=== PATIENT | male | born 1980 | race Caucasian/White ===

== ENCOUNTER 2018-10-14 09:13 | Emergency (ER) | payer MEDICAID ==
[~2018-10-14] VITALS: Ht 167.6 cm; Wt 75.0 kg
[~2018-10-14 09:13] MED LIST: ACET-1157; CEPH-443; SILV20CR12 TOP
[2018-10-14] MEDS ORDERED: SOD CHLORIDE 0.9% 1,000 ML IV STA (09:16)
[2018-10-14] MEDS ORDERED: NALOXONE (0.4 MG/ML) INJ ONE (09:57)
[2018-10-14] MEDS ORDERED: NALOXONE (0.4 MG/ML) INJ IV ONE ×2 (10:00→11:10)
[2018-10-14] MEDS ORDERED: KETOROLAC 15 MG INJ IV STA (14:01)
--- NOTE | 2018-10-14 15:20 | PSY ---
Date/Time of Note Date/Time of Note DATE: 10/14/18 TIME: 18:11 Psychiatric Subjective Eval Consent Pt consented to telemedicine: Yes Subjective Evaluation Patient location: emergency History of present illness HPI: 38 yo male with unclear psych hx, was brought in after found unresponsive at work. In ED, pt was initially nearly catatonic, not responding but had no medical problems. Pt woke up today and has been responding, told the attending MD that he has thoughts to kill himself and was using methamphetamine. Pt tells this MD that he is depressed, denies any si or that he ever reported si. he admits to using methamphetamine and feeling depressed. Reports he feels in a dream. Denies AH. Past Psych Hx: denies PMhx: denieis meds: denies Allergies: denies MSE: cooperative, casually groomed, somewhat lethargic, + PMR, decreased prosody of speech (used azerbaijani director speech language), dysthymic, restricted affect, organized, no delusions no avh denies si, impaired insight Imp: 38 yo male s/p what appears to be psychosis related to likely methamphetamine use. Most sxs have apparently resolved, as well as pt's si, now that pt is less intoxicated voluntary psych admit recommend zyprexa 2.5mg po bid zyprexa 5mg po prn moderate agitation chlorpromazine 25mg im prn Allergies: Coded Allergies: No Known Allergy (Unverified , 03/19/11) Psychiatric Objective Eval Mental Status Examination: Laboratory Results Laboratory Tests Test 10/14/18 09:18 10/14/18 09:20 10/14/18 09:24 10/14/18 09:45 Bedside Glucose 160 mg/dL Prothrombin Time 12.7 Sec Prothrombin Time 1.0 Ratio INR International 0.94 Normalized Ratio White Blood Count 12.4 10^3/ul Red Blood Count 4.99 10^6/ul Hemoglobin 14.0 g/dl Hematocrit 42.6 % Mean Corpuscular 85.4 fl Volume Mean Corpuscular 28.1 pg Hemoglobin Mean Corpuscular 32.9 g/dl Hemoglobin Concent Red Cell 13.5 % Distribution Width Platelet Count 188 10^3/UL Mean Platelet 12.7 fl Volume Immature 0.400 % Granulocytes % Neutrophils % 74.5 % Lymphocytes % 17.5 % Monocytes % 5.4 % Eosinophils % 1.8 % Basophils % 0.4 % Nucleated Red 0.0 /100WBC Blood Cells % Immature 0.050 10^3/ul Granulocytes # Neutrophils # 9.2 10^3/ul Lymphocytes # 2.2 10^3/ul Monocytes # 0.7 10^3/ul Eosinophils # 0.2 10^3/ul Basophils # 0.1 10^3/ul Nucleated Red 0.0 10^3/ul Blood Cells # Urine Color STRAW Urine Clarity CLEAR Urine pH 7.0 Urine Specific 1.006 [place] Urine Ketones NEGATIVE mg/dL Urine Nitrite NEGATIVE mg/dL Urine Bilirubin NEGATIVE mg/dL Urine Urobilinogen NEGATIVE mg/dL Urine Leukocyte NEGATIVE Jose/ul Esterase Urine Hemoglobin NEGATIVE mg/dL Urine Glucose 2+ mg/dL Urine Total NEGATIVE mg/dl Protein Sodium Level 136 mmol/L Potassium Level 3.6 mmol/L Chloride Level 99 mmol/L Carbon Dioxide 28 mmol/L Level Anion Gap 9 Blood Urea 21 mg/dl Nitrogen Creatinine 0.65 mg/dl Est Glomerular > 60 mL/min Filtrat Rate mL/min Glucose Level 179 mg/dl Calcium Level 8.8 mg/dl Total Bilirubin 0.3 mg/dl Direct Bilirubin 0.00 mg/dl Indirect Bilirubin 0.3 mg/dl Aspartate Amino 26 IU/L Transf (AST/SGOT) Alanine 37 IU/L Aminotransferase ( ALT/SGPT) Alkaline 102 IU/L Phosphatase Ammonia < 9 umol/l Troponin I < 0.012 ng/ml Total Protein 6.4 g/dl Albumin 3.5 g/dl Globulin 2.90 g/dl Albumin/Globulin 1.20 Ratio Salicylates Level < 1.0 mg/dl Acetaminophen < 10.0 ug/ml Level Ethyl Alcohol < 10.0 mg/dl Level Urine Opiates Negative Screen Urine Barbiturates Negative Urine Amphetamines POSITIVE Screen Urine Negative Benzodiazepines Screen Urine Cocaine Negative Screen Urine Cannabinoids Negative Assessment and Plan Recommendation/Plan Multiple antipsychotics: No Discharge Disposition: Psychiatric inpatient Legal Status: Voluntary LEIA ALLISON Oct 14, 2018 15:20
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
[2018-10-14 22:27] VITALS: BP 137/85; PULSE 74; RESP 12
[2018-10-14 23:14] VITALS: Ht 167.6 cm; Wt 75.0 kg
== END 2018-10-14 23:17 ==
LOC: E/R 09:13
DX: F15.188 Other stimulant abuse with other stimulant-induced disorder (principal); D72.829 Elevated white blood cell count, unspecified; E86.0 Dehydration; F32.1 Major depressive disorder, single episode, moderate; R07.9 Chest pain, unspecified
CPT/HCPCS: 51702; 70450; 71045; 73030; 80053; 80307; 81003; 82140; 82962; 84484; 85025; 85610; 93005; J1885; J2310; J7030; Z7610; 36415; 96374; 96375; 96376